=== PATIENT | female | born 1940 | race American Indian/Alaskan Native ===

== ENCOUNTER 2017-11-26 13:51 | Outpatient (CLI) | payer MEDICARE ==
--- NOTE | 2017-11-26 16:54 | XRay Report ---
Cervical spine: Neck pain/bilateral hand numbness. AP and lateral projections demonstrates large anterior and posterior spurs at C4-5 and C5-6 with mild posterior C5 subluxation. The interspaces at these levels are moderately narrowed. Lesser spurring and interspace narrowing is noted at C6-7. The bones may be slightly demineralized. No prevertebral swelling noted. Impressions: Degenerative bone and this changes extending from C4-C7 as described. Mild retrolisthesis of C5.
== END 2017-11-26 13:52 | disposition home or self-care (01) ==
LOC: SPVIMAG 13:51
PROVIDERS: ATTEND Physical Medicine & Rehabilitation
DX: M46.02 Spinal enthesopathy, cervical region (principal); M47.892 Other spondylosis, cervical region; M81.0 Age-related osteoporosis without current pathological fracture
CPT/HCPCS: 72040